=== PATIENT | male | born 1990 | race Hispanic/Latino ===

== ENCOUNTER 2022-10-09 10:23 | Inpatient (IN) | payer OTHER ==
[~2022-10-09] VITALS: Ht 167.6 cm; Wt 73.4 kg
[2022-10-09] MEDS ORDERED: LORAZEPAM 2 MG/ML 1 ML VIAL IVP ONE (11:30)
[2022-10-09 11:37] LABS: BASOPHILS # (AUTO) 0.05 K/uL (0.00-0.20); BASOPHILS % (AUTO) 1.3 % (0.0-5.0); EOSINOPHILS # (AUTO) 0.04 K/uL (0.00-0.70); HEMATOCRIT 42.4 % (42-54); IMMATURE GRANULOCYTE ABSOLUTE 0.01 K/uL (0-1); LYMPHOCYTES # (AUTO) 0.7 K/uL (1.0-4.8); LYMPHOCYTES % (AUTO) 18.5 % (21.0-51.0); MEAN CORPUSCULAR HEMOGLOBIN 35.3 pg (27.0-33.0); MEAN CORPUSCULAR HGB CONC 35.8 g/dL (32.0-36.0); MEAN CORPUSCULAR VOLUME 98.4 fL (79-99); MONOCYTES # (AUTO) 0.4 K/uL (0.1-1.0); MONOCYTES % (AUTO) 11.3 % (3.0-13.0); NEUTROPHILS # (AUTO) 2.6 K/uL (1.8-7.7); NEUTROPHILS % (AUTO) 67.6 % (40.0-77.0); PLATELET COUNT (AUTO) 141 K/uL (130-400); RED BLOOD CELL COUNT(AUTO) 4.31 MIL/uL (4.50-6.20); RED CELL DISTRIBUTION WIDTH 12.5 % (11.0-15.5); WHITE BLOOD COUNT (AUTO) 3.9 K/uL (4.8-10.8)
[2022-10-09 11:42] LABS: CARBON DIOXIDE 26 mmol/L (21-32); CHLORIDE 97 mmol/L (101-111); CREATININE 0.8 mg/dL (0.5-1.5); GLOMERULAR FILTR. RATE CALC 119 mL/min (>90); GLUCOSE,RANDOM 94 mg/dL (70-105); POTASSIUM 3.4 mmol/L (3.5-5.1); SODIUM SERUM 139 mmol/L (136-145); UREA NITROGEN, BLOOD 7 mg/dL (7-18)
[2022-10-09 11:46] LABS: ALANINE AMINOTRANSFERASE 112 U/L (12-78); ALBUMIN 4.2 g/dL (3.5-5.0); ALCOHOL, BLOOD 4 mg/dL (0-10); ASPARTATE AMINOTRANSFERASE 161 U/L (10-37); CREATINE KINASE, TOTAL 209 U/L (21-232)
[2022-10-09 11:52] LABS: ACETAMINOPHEN < 1 mcg/mL (10-29); SALICYLATE < 2.8 mg/dL (2.8-20.0)
[2022-10-09] MEDS ORDERED: CHLORDIAZEPOXIDE HCL 25 MG CAP PO PRN (12:00)
[2022-10-09] MEDS ORDERED: PHARMACY COMMUNICATION MISC PRN (12:00)
[2022-10-09] MEDS ORDERED: PHARMACY COMMUNICATION MISC SCH (12:00)
[2022-10-09 12:39] LABS: MAGNESIUM 1.7 mg/dL (1.80-2.40)
[2022-10-09] MEDS: THIAMINE HCL 100 MG, FOLIC ACID 1 MG, M.V.I. IV [ADULT] 10 ML in 0.9%NACL 1000ML 1,000 ML IV SCH (13:22)
[2022-10-09] MEDS: CHLORDIAZEPOXIDE HCL 25 MG CAP PO SCH ×3 (13:22→21:11)
[2022-10-09] MEDS ORDERED: KCL 20 MEQ ERTAB PO ONE (13:30)
[2022-10-09 14:36] LABS: AMPHET/METH SCREEN,URINE NEGATIVE (NEGATIVE); BARBITURATE SCREEN, URINE NEGATIVE (NEGATIVE); BENZODIAZEPINES SCREEN,URINE NEGATIVE (NEGATIVE); CANNABINOID SCREEN,URINE POSITIVE (NEGATIVE); COCAINE SCREEN,URINE NEGATIVE (NEGATIVE); OPIATE SCREEN,URINE NEGATIVE (NEGATIVE); PHENCYCLIDINE SCREEN,URINE NEGATIVE (NEGATIVE)
[2022-10-09 14:53] LABS: APPEARANCE,URINE CLEAR (CLEAR); BILIRUBIN,URINE 0.5 mg/dL (NEGATIVE); COLOR,URINE YELLOW (YELLOW); GLUCOSE, URINE (UA) NEGATIVE (NEGATIVE); KETONES,URINE 100 mg/dL (NEGATIVE); LEUKOCYTE ESTERASE ,URINE NEGATIVE Leu/uL (NEGATIVE); NITRATE,URINE NEGATIVE (NEGATIVE); OCCULT BLOOD,URINE NEGATIVE (NEGATIVE); PH,URINE 6.5 (5.0-8.0); PROTEIN,URINE 30 mg/dL (NEGATIVE); UROBILINOGEN,URINE 3 mg/dL (0.2-1.0)
[2022-10-09 14:54] LABS: ADD UA MICROSCOPIC YES
[2022-10-09 14:55] LABS: MUCUS,URINE RARE LPF (None Seen)
[2022-10-09] MEDS: MAGNESIUM 2GM PREMIX 50ML 50 ML IV PRN (15:16)
[2022-10-09 15:50] VITALS: BP 144/69; PULSE 73; RESP 19
[2022-10-09] MEDS ORDERED: POTASSIUM CHLORIDE 10% ELIXIR 20 MEQ/15 ML UDCUP PO PRN (18:00)
[2022-10-09] MEDS ORDERED: POTASSIUM CHLORIDE 20MEQ/100ML 100 ML IV PRN (18:00)
[2022-10-09] MEDS ORDERED: LORAZEPAM 2 MG/ML 1 ML VIAL IM ONE (19:30)
[2022-10-09 20:00] VITALS: BP 129/84; PULSE 94; RESP 18; O2SAT 95
[2022-10-09] MEDS: KCL 20 MEQ ERTAB PO PRN ×2 (21:01→21:12)
[2022-10-10] VITALS (8 sets, daily range): BP systolic 123–160; BP diastolic 79–95; PULSE 69–86; RESP 16–18; O2SAT 95–96
[2022-10-10 01:04] LABS: SARS-CoV-2, RNA, NAAT NEGATIVE SARS CoV-2 (NEGATIVE)
[2022-10-10 03:42] LABS: BASOPHILS # (AUTO) 0.05 K/uL (0.00-0.20); BASOPHILS % (AUTO) 1.4 % (0.0-5.0); EOSINOPHILS # (AUTO) 0.17 K/uL (0.00-0.70); EOSINOPHILS % (AUTO) 4.6 % (0.0-8.0); HEMATOCRIT 37.7 % (42-54); IMMATURE GRANULOCYTE ABSOLUTE 0.02 K/uL (0-1); LYMPHOCYTES # (AUTO) 1.3 K/uL (1.0-4.8); LYMPHOCYTES % (AUTO) 35.9 % (21.0-51.0); MEAN CORPUSCULAR HGB CONC 34.5 g/dL (32.0-36.0); MEAN CORPUSCULAR VOLUME 101.6 fL (79-99); MONOCYTES # (AUTO) 0.5 K/uL (0.1-1.0); MONOCYTES % (AUTO) 12.2 % (3.0-13.0); NEUTROPHILS # (AUTO) 1.7 K/uL (1.8-7.7); NEUTROPHILS % (AUTO) 45.4 % (40.0-77.0); PLATELET COUNT (AUTO) 96 K/uL (130-400); RED BLOOD CELL COUNT(AUTO) 3.71 MIL/uL (4.50-6.20); RED CELL DISTRIBUTION WIDTH 12.7 % (11.0-15.5); WHITE BLOOD COUNT (AUTO) 3.7 K/uL (4.8-10.8)
[2022-10-10 04:01] LABS: ALBUMIN 3.3 g/dL (3.5-5.0); BILIRUBIN,TOTAL 1.2 mg/dL (0.2-1.0); CREATININE 0.9 mg/dL (0.5-1.5); MAGNESIUM 2.1 mg/dL (1.80-2.40); POTASSIUM 3.1 mmol/L (3.5-5.1); TOTAL PROTEIN, SERUM 6.3 g/dL (6.0-8.3)
[2022-10-10] MEDS: KCL 20 MEQ ERTAB PO PRN (07:09)
[2022-10-10] MEDS: CHLORDIAZEPOXIDE HCL 25 MG CAP PO SCH ×3 (08:34→21:30)
[2022-10-10] MEDS: LORAZEPAM 2 MG/ML 1 ML VIAL IVP PRN ×2 (10:29→23:11)
[2022-10-10] MEDS: THIAMINE HCL 100 MG, FOLIC ACID 1 MG, M.V.I. IV [ADULT] 10 ML in 0.9%NACL 1000ML 1,000 ML IV SCH (10:53)
[2022-10-10] MEDS: PANTOPRAZOLE 40 MG/VIAL IVP SCH (21:30)
[2022-10-11] VITALS (7 sets, daily range): BP systolic 122–138; BP diastolic 74–91; PULSE 60–90; RESP 18–19; O2SAT 96–98
[2022-10-11 04:02] LABS: BASOPHILS # (AUTO) 0.04 K/uL (0.00-0.20); BASOPHILS % (AUTO) 1.1 % (0.0-5.0); EOSINOPHILS # (AUTO) 0.22 K/uL (0.00-0.70); EOSINOPHILS % (AUTO) 6.1 % (0.0-8.0); HEMATOCRIT 37.3 % (42-54); IMMATURE GRANULOCYTE ABSOLUTE 0.01 K/uL (0-1); LYMPHOCYTES # (AUTO) 1.2 K/uL (1.0-4.8); LYMPHOCYTES % (AUTO) 33.1 % (21.0-51.0); MEAN CORPUSCULAR HEMOGLOBIN 34.9 pg (27.0-33.0); MEAN CORPUSCULAR VOLUME 102.5 fL (79-99); MONOCYTES # (AUTO) 0.3 K/uL (0.1-1.0); MONOCYTES % (AUTO) 9.5 % (3.0-13.0); NEUTROPHILS # (AUTO) 1.8 K/uL (1.8-7.7); NEUTROPHILS % (AUTO) 49.9 % (40.0-77.0); PLATELET COUNT (AUTO) 111 K/uL (130-400); RED BLOOD CELL COUNT(AUTO) 3.64 MIL/uL (4.50-6.20); RED CELL DISTRIBUTION WIDTH 12.7 % (11.0-15.5); WHITE BLOOD COUNT (AUTO) 3.6 K/uL (4.8-10.8)
[2022-10-11 04:10] LABS: INR 0.93 (0.85-1.15); PROTHROMBIN TIME 9.9 SEC (9.6-11.6)
[2022-10-11 04:11] LABS: PARTIAL THROMBOPLASTIN TIME 25.4 SEC (26.3-35.5)
[2022-10-11 04:24] LABS: ALBUMIN 3.2 g/dL (3.5-5.0); BILIRUBIN,TOTAL 0.8 mg/dL (0.2-1.0); MAGNESIUM 1.9 mg/dL (1.80-2.40); POTASSIUM 3.2 mmol/L (3.5-5.1); TOTAL PROTEIN, SERUM 6.2 g/dL (6.0-8.3)
[2022-10-11] MEDS: FOLIC ACID 5 MG/ML VIAL IV SCH (08:24)
[2022-10-11] MEDS: PANTOPRAZOLE 40 MG/VIAL IVP SCH ×2 (08:24→20:46)
[2022-10-11] MEDS: THIAMINE HCL 100 MG/ML 2ML VIAL IVP SCH (08:25)
[2022-10-11] MEDS: CHLORDIAZEPOXIDE HCL 25 MG CAP PO SCH ×3 (08:25→20:46)
[2022-10-11] MEDS: THIAMINE HCL 100 MG, FOLIC ACID 1 MG, M.V.I. IV [ADULT] 10 ML in 0.9%NACL 1000ML 1,000 ML IV SCH (12:00)
[2022-10-11 19:39] LABS: HEPATITIS A IGM ANTIBODY Non-Reactive (Nonreactive); HEPATITIS B CORE IGM ANTIBODY Non-Reactive (Negative); HEPATITIS B SURFACE ANTIGEN Non-Reactive (Nonreactive); HEPATITIS C ANTIBODY Non-Reactive (Nonreactive)
[2022-10-12 04:29] VITALS: BP 130/85; PULSE 98; RESP 18
[2022-10-12 04:55] LABS: BASOPHILS # (AUTO) 0.04 K/uL (0.00-0.20); BASOPHILS % (AUTO) 0.9 % (0.0-5.0); EOSINOPHILS # (AUTO) 0.22 K/uL (0.00-0.70); EOSINOPHILS % (AUTO) 4.8 % (0.0-8.0); HEMATOCRIT 35.4 % (42-54); IMMATURE GRANULOCYTE ABSOLUTE 0.02 K/uL (0-1); LYMPHOCYTES # (AUTO) 1.5 K/uL (1.0-4.8); LYMPHOCYTES % (AUTO) 32.2 % (21.0-51.0); MEAN CORPUSCULAR HEMOGLOBIN 35.7 pg (27.0-33.0); MEAN CORPUSCULAR HGB CONC 34.5 g/dL (32.0-36.0); MEAN CORPUSCULAR VOLUME 103.5 fL (79-99); MONOCYTES # (AUTO) 0.6 K/uL (0.1-1.0); MONOCYTES % (AUTO) 14.1 % (3.0-13.0); NEUTROPHILS # (AUTO) 2.2 K/uL (1.8-7.7); NEUTROPHILS % (AUTO) 47.6 % (40.0-77.0); PLATELET COUNT (AUTO) 129 K/uL (130-400); RED BLOOD CELL COUNT(AUTO) 3.42 MIL/uL (4.50-6.20); WHITE BLOOD COUNT (AUTO) 4.5 K/uL (4.8-10.8)
[2022-10-12 05:07] LABS: ALBUMIN 3.1 g/dL (3.5-5.0); BILIRUBIN,TOTAL 0.6 mg/dL (0.2-1.0); CREATININE 1.1 mg/dL (0.5-1.5); MAGNESIUM 1.7 mg/dL (1.80-2.40); POTASSIUM 3.5 mmol/L (3.5-5.1); TOTAL PROTEIN, SERUM 6.3 g/dL (6.0-8.3)
[2022-10-12 08:00] VITALS: BP 125/77; PULSE 56; RESP 18; O2SAT 96
[2022-10-12] MEDS ORDERED: FOLIC ACID 5 MG/ML VIAL IV SCH (09:00)
[2022-10-12] MEDS ORDERED: THIAMINE HCL 100 MG/ML 2ML VIAL IVP SCH (09:00)
[2022-10-12] MEDS: PANTOPRAZOLE 40 MG/VIAL IVP SCH ×2 (09:36→21:11)
[2022-10-12] MEDS: CHLORDIAZEPOXIDE HCL 25 MG CAP PO SCH ×3 (09:37→21:11)
[2022-10-12] MEDS: THIAMINE HCL 100 MG/ML 2ML VIAL IVP SCH (09:38)
[2022-10-12] MEDS: MAGNESIUM 2GM PREMIX 50ML 50 ML IV PRN (09:38)
[2022-10-12] MEDS: FOLIC ACID 5 MG/ML VIAL IV SCH (09:40)
[2022-10-12 12:00] VITALS: BP 134/96; PULSE 85; RESP 18
[2022-10-12 16:00] VITALS: BP 148/91; PULSE 82; RESP 18
[2022-10-12 20:00] VITALS: O2SAT 99
[2022-10-12 20:26] VITALS: BP 136/76; PULSE 61; RESP 19
[2022-10-13 04:19] VITALS: BP 124/94; PULSE 84; RESP 18
[2022-10-13 08:00] VITALS: BP 111/70; PULSE 67; RESP 18
[2022-10-13] MEDS: CHLORDIAZEPOXIDE HCL 25 MG CAP PO SCH ×3 (09:14→19:47)
[2022-10-13] MEDS: THIAMINE HCL 100 MG/ML 2ML VIAL IVP SCH (09:14)
[2022-10-13] MEDS: FOLIC ACID 5 MG/ML VIAL IV SCH (09:19)
[2022-10-13] MEDS: PANTOPRAZOLE 40 MG/VIAL IVP SCH ×2 (09:19→19:47)
[2022-10-13 10:00] VITALS: O2SAT 98
[2022-10-13 12:00] VITALS: BP 115/86; PULSE 78; RESP 18
[2022-10-13 16:00] VITALS: BP 131/87; PULSE 84; RESP 18
[2022-10-13 20:00] VITALS: BP 131/76; PULSE 81; RESP 18; O2SAT 100
[2022-10-14] VITALS (8 sets, daily range): BP systolic 114–148; BP diastolic 75–91; PULSE 63–96; RESP 18–20; O2SAT 95–98
[2022-10-14] MEDS: FOLIC ACID 5 MG/ML VIAL IV SCH (09:12)
[2022-10-14] MEDS: PANTOPRAZOLE 40 MG/VIAL IVP SCH ×2 (09:12→19:40)
[2022-10-14] MEDS: CHLORDIAZEPOXIDE HCL 25 MG CAP PO SCH (09:12)
[2022-10-14] MEDS: THIAMINE HCL 100 MG/ML 2ML VIAL IVP SCH (09:12)
[2022-10-15] VITALS: BP 123/79; PULSE 82; RESP 20
[2022-10-15 04:00] VITALS: BP 99/63; PULSE 67; RESP 16
[2022-10-15 07:00] VITALS: BP 118/77; PULSE 80; RESP 18
[2022-10-15 08:00] VITALS: O2SAT 98
[2022-10-15] MEDS ORDERED: COMPOUND IV REFRIGERATED 1 EACH IVSOLN MISC PRN (08:00)
[2022-10-15] MEDS: FOLIC ACID 5 MG/ML VIAL IV SCH (09:00)
[2022-10-15] MEDS: PANTOPRAZOLE 40 MG/VIAL IVP SCH (09:01)
[2022-10-15] MEDS: THIAMINE HCL 100 MG/ML 2ML VIAL IVP SCH (09:02)
[2022-10-15 12:00] VITALS: BP 121/79; PULSE 84; RESP 18
== END 2022-10-15 15:25 | disposition home or self-care (01) | DRG 897 ==
LOC: EDH 10:23 → EDHIP 10:24 → 4AH 15:50
PROVIDERS: ADMIT Internal Medicine; ATTEND Internal Medicine
DX: F10.239 Alcohol dependence with withdrawal, unspecified (principal); D61.818 Other pancytopenia; K70.10 Alcoholic hepatitis without ascites; Z20.822 Contact with and (suspected) exposure to COVID-19; E87.6 Hypokalemia; F41.9 Anxiety disorder, unspecified; Z87.891 Personal history of nicotine dependence
CPT/HCPCS: 36415; 70450; 71045; 76705; 80053; 80074; 80305; 81001; 82550; 82607; 82746; 83690; 83735; 84443; 85025; 85610; 85730; 87635; 93005; C9113; G0378; G0481; J2060; J3411; J3475; J3490; J7030